=== PATIENT | female | born 1945 | race Caucasian/White ===

== ENCOUNTER 2017-01-03 09:00 | Emergency (ER) | payer MEDICAID ==
[~2017-01-03] VITALS: Ht 172.7 cm; Wt 85.7 kg
--- NOTE | ~2017-01-03 | CR229 ---
[facility] A Service of [facility] RADIOLOGY TEXT RESULTS PATIENT: JERONIMO WILSON LOCATION: [facility] : 49 UNIT #: [id number] AGE: [address]: Ward Hardwick SEX: F ORDER DR: [id number] [facility] [address] [place], [place] [address] [id number] E MR#: [id number] Acc #: [id number] NAME: JERONIMO WILSON. : 1945 SEX: F STUDY DATE/TIME: 01/03/2017 10:32 UNIT: [facility] ROOM: STUDY DESCRIPTION: CR Shoulder Min 2 View Lt Attending Physician: Ward Hardwick R.N. Ordering Physician: Ward Hardwick R.N. MEDICAL IMAGING REPORT This report is preliminary unless electronic signature is present EXAM Left shoulder series 01/03/2017 HISTORY Left upper extremity pain. Left rib pain under left breast. Fell on wet floor in kitchen. Left shoulder pain. TECHNIQUE AP, internal and external rotation views of the left shoulder are presented with transscapular view. FINDINGS No traumatic fracture or malalignment. Acromioclavicular and glenohumeral joint relationships are normal. Periarticular soft tissues are unremarkable. Jewelry artifact overlying neck. Status post median sternotomy and CABG. Visualized pulmonary parenchyma shows no acute abnormality. The visualized ribs are intact. Dictated by... Jon Jefferson M.D. THIS IS AN ELECTRONICALLY VERIFIED REPORT Jon Jefferson M.D. at 01/04/2017 2:07 PM CECILIO/zeny TD: 01/03/2017 16:50 JOB #: [id number] MEDICAL IMAGING REPORT [facility] A Service of [facility] RADIOLOGY TEXT RESULTS PATIENT: JERONIMO WILSON LOCATION: [facility] : 47 UNIT #: [id number] AGE: [address]: Ward Hardwick SEX: F ORDER DR: Page 1 of 1 COPY
--- NOTE | ~2017-01-03 | CR63 ---
[facility] A Service of [facility] & [facility] RADIOLOGY TEXT RESULTS PATIENT: JERONIMO WILSON LOCATION: [facility] : 49 UNIT #: [id number] AGE: [address]: Ward Hardwick SEX: F ORDER DR: [id number] [facility] [address] [place], [place] [address] [id number] E MR#: [id number] Acc #: [id number] NAME: JERONIMO WILSON. : 1945 SEX: F STUDY DATE/TIME: 01/03/2017 10:52 UNIT: [facility] ROOM: STUDY DESCRIPTION: CR Chest 2 View Attending Physician: Ward Hardwick R.N. Ordering Physician: Ward Hardwick R.N. Primary Care Physician: No Primary Care Physician MEDICAL IMAGING REPORT This report is preliminary unless electronic signature is present EXAM Chest 2 views 01/03/2017, 10:52 hours. HISTORY 71-year-old woman who fell on wet floor in her kitchen at home this morning. Left rib pain under left breast since fall. COMPARISON None. FINDINGS Upright PA and lateral views of the chest demonstrate median sternotomy and CABG change with heart size within normal limits. There is a mildly tortuous aorta. The lungs are well expanded and clear of acute density. There is no pleural effusion or pneumothorax. No rib fracture or acute compression fracture seen. IMPRESSION Median sternotomy change with CABG. Heart size within normal limits. The lungs are clear. There is no effusion, pneumothorax or fracture seen. Dictated by... Ambar Soto M.D. THIS IS AN ELECTRONICALLY VERIFIED REPORT Ambar Soto M.D. at 01/03/2017 5:02 PM SMM/vannessa TD: 01/03/2017 16:47 JOB #: [id number] MEDICAL IMAGING REPORT Page 1 of 1 COPY
--- NOTE | ~2017-01-03 | CR281 ---
[facility] A Service of [facility] & [facility] RADIOLOGY TEXT RESULTS PATIENT: JERONIMO WILSON LOCATION: [facility] : 49 UNIT #: [id number] AGE: [address]: Ward Hardwick SEX: F ORDER DR: [id number] [facility] [address] [place], [place] [address] [id number] E MR#: [id number] Acc #: [id number] NAME: JERONIMO WILSON. : 1945 SEX: F STUDY DATE/TIME: 01/03/2017 10:31 UNIT: [facility] ROOM: STUDY DESCRIPTION: CR Wrist Min 3 View Lt Attending Physician: Ward Hardwick R.N. Ordering Physician: Ward Hardwick R.N. Primary Care Physician: Primary Care Physician No MEDICAL IMAGING REPORT This report is preliminary unless electronic signature is present EXAM Left wrist series, 01/03/2017 HISTORY Left wrist pain. Fell on wet floor in kitchen at home this a.m. FINDINGS AP lateral and oblique radiographs of the left wrist are presented. No traumatic fracture or malalignment. Joint spaces are intact. Mild degenerative changes basal joint of the thumb. Visualized bones of hand appear intact. Jewelry artifact overlies the hand. No soft tissue defect, subcutaneous air or radiodense foreign body. Dictated by... Jon Jefferson M.D. THIS IS AN ELECTRONICALLY VERIFIED REPORT Jon Jefferson M.D. at 01/04/2017 2:07 PM Jose TD: 01/03/2017 16:53 JOB #: [id number] MEDICAL IMAGING REPORT Page 1 of 1 COPY
--- NOTE | ~2017-01-03 | CR93 ---
[facility] A Service of [facility] RADIOLOGY TEXT RESULTS PATIENT: JERONIMO WILSON LOCATION: [facility] : 49 UNIT #: [id number] AGE: [address]: Ward Hardwick SEX: F ORDER DR: [id number] [facility] [address] [place], [place] [address] [id number] E MR#: [id number] Acc #: [id number] NAME: JERONIMO WILSON. : 1945 SEX: F STUDY DATE/TIME: 01/03/2017 10:45 UNIT: [facility] ROOM: STUDY DESCRIPTION: CR Elbow Min 3 Views Lt Attending Physician: Ward Hardwick R.N. Ordering Physician: Ward Hardwick R.N. Primary Care Physician: No Primary Care Physician MEDICAL IMAGING REPORT This report is preliminary unless electronic signature is present EXAM Left elbow, 3 views, 01/03/2017, 1045 hours. COMPARISON 10/22/2015 CLINICAL HISTORY Patient fell on a wet kitchen floor at home today. Elbow pain. COMPARISON 10/22/2015 FINDINGS AP, lateral, and oblique views demonstrate stable degenerative spurring. No definite fracture is seen. There is a contour abnormality of the articular surface of the radial head related to a spur which is unchanged. IMPRESSION No definite joint effusion or fracture. Degenerative spurring is present. There is a stable contour abnormality at the articular surface of the radial head, unchanged from 10/22/2015 related to a spur. No fracture seen. Dictated by... Ambar Soto M.D. THIS IS AN ELECTRONICALLY VERIFIED REPORT Ambar Soto M.D. at 01/03/2017 5:02 PM TOMERM/anselmo TD: 01/03/2017 16:53 [facility] A Service [facility] RADIOLOGY TEXT RESULTS PATIENT: JERONIMO WILSON LOCATION: [facility] : 47 UNIT #: [id number] AGE: [address]: Ward Hardwick SEX: F ORDER DR: JOB #: [id number] MEDICAL IMAGING REPORT Page 1 of 1 COPY
--- NOTE | ~2017-01-03 | CR150 ---
[facility] A Service of [facility] RADIOLOGY TEXT RESULTS PATIENT: JERONIMO WILSON LOCATION: [facility] : 49 UNIT #: [id number] AGE: [address]: Ward Hardwick SEX: F ORDER DR: [id number] [facility] [address] [place], [place] [address] [id number] E MR#: [id number] Acc #: [id number] NAME: JERONIMO WILSON. : 1945 SEX: F STUDY DATE/TIME: 01/03/2017 10:27 UNIT: [facility] ROOM: STUDY DESCRIPTION: CR Hip Min 2 Views Lt Attending Physician: Ward Hardwick R.N. Ordering Physician: Ward Hardwick R.N. Primary Care Physician: Primary Care Physician No MEDICAL IMAGING REPORT This report is preliminary unless electronic signature is present EXAM Left hip series, 01/03/2017 HISTORY Trauma. Left rib pain under left breast. Left upper extremity pain. Fell on wet floor in kitchen at home. Left hip pain. FINDINGS AP radiograph of the pelvis presented with frog-leg view left hip. No traumatic fracture or malalignment. The bilateral hip joints show mild degenerative change. Bilateral proximal femurs appear intact. Surgical clips superimposed over the left inferior pelvis. Visualized bowel gas pattern normal. There are atherosclerotic arterial calcifications. Dictated by... Jon Jefferson M.D. THIS IS AN ELECTRONICALLY VERIFIED REPORT Jon Jefferson M.D. at 01/04/2017 2:07 PM CECILIO/paula TD: 01/03/2017 16:47 JOB #: [id number] MEDICAL IMAGING REPORT Page 1 of 1 COPY
[~2017-01-03 09:00] MED LIST: ASPIRINEC; HYDROCODON-ACE1 EAC7 PO; VICODIN 5/500 T1 TAB PO
== END 2017-01-03 12:11 | disposition home or self-care (01) ==
LOC: CED 09:00 → CFTX 09:00
DX: S70.02XA Contusion of left hip, initial encounter (principal); S20.212A Contusion of left front wall of thorax, initial encounter; S50.02XA Contusion of left elbow, initial encounter; S60.212A Contusion of left wrist, initial encounter; S40.012A Contusion of left shoulder, initial encounter; I50.9 Heart failure, unspecified; E11.9 Type 2 diabetes mellitus without complications; J44.9 Chronic obstructive pulmonary disease, unspecified; F17.210 Nicotine dependence, cigarettes, uncomplicated; Z88.0 Allergy status to penicillin; W01.0XXA Fall on same level from slipping, tripping and stumbling without subsequent striking against object, initial encounter; Y92.9 Unspecified place or not applicable
CPT/HCPCS: 71020; 73030; 73080; 73110; 73502; 99283

== ENCOUNTER 2017-01-15 20:47 | Inpatient (IN) | payer MEDICARE, MEDICAID ==
[~2017-01-15] VITALS: Ht 172.7 cm; Wt 97.4 kg
--- NOTE | ~2017-01-15 | CT57 ---
[facility] A Service of [facility] RADIOLOGY TEXT RESULTS PATIENT: JERONIMO WILSON LOCATION: [address] : [birth year] UNIT #: [id number] AGE: [address]: Clyde Franklin MD SEX: F ORDER DR: [id number] [facility] [address] [place] [address] [place], [place] [address] [id number] I MR#: [id number] Acc #: [id number] NAME: JERONIMO WILSON. : 1945 SEX: F STUDY DATE/TIME: 01/16/2017 16:20 UNIT: [facility] ROOM: [facility] STUDY DESCRIPTION: CT Chest Wo Cont Attending Physician: Clyde Franklin M.D. Ordering Physician: Mikaela Singletary M.D. Primary Care Physician: Primary Care Physician No MEDICAL IMAGING REPORT This report is preliminary unless electronic signature is present EXAM CT chest without contrast DATE: 01/16/2017 HISTORY 71-year-old female with shortness of breath for 6 days. Possible pneumonia on chest x-ray. Possible small right pleural effusion. Additional history of diabetes, COPD and cardiac disease. Previous CABG. COMPARISON AP portable chest 01/15/2017 at 14:08. No prior CT chest at this [address] for comparison. PROCEDURE 5 mm axial images through the chest without contrast. Sagittal and coronal reformatted images were obtained. This CT exam was performed with one or more of the following radiation dose reduction techniques: automatic exposure control, adjustment of mA and/or kV according to patient size, and iterative reconstruction. FINDINGS Diffuse tree-in-bud nodular densities are scattered throughout both lungs. There is band-like atelectatic changes medially within the right middle lobe, lingular segment left upper lobe, and medial - inferior right upper lobe. No pleural effusion. No pneumothorax. Mild cardiomegaly with presumed CABG changes. Borderline aneurysmal dilation of the mid descending thoracic aorta, 3.0 cm. Ectasia of the mid ascending thoracic aorta, 3.8 cm. The gallbladder is distended up to 4.6 cm transversely which could be due STS. [facility] A Service of [facility] RADIOLOGY TEXT RESULTS PATIENT: JERONIMO WILSON LOCATION: [address] : [birth year] UNIT #: [id number] AGE: [address]: Clyde Franklin MD SEX: F ORDER DR: to a fasting state but no pericholecystic inflammation is seen. Benign left adrenal adenoma (Hounsfield units -15) measures approximately 3.2 cm. A 1.4 cm cyst in the right upper renal pole (Hounsfield units -4.2). No acute or suspicious osseous abnormalities. IMPRESSION 1. Extensive tree-in-bud nodular densities throughout both lungs suggesting small airways infectious - inflammatory etiology. Band-like atelectatic changes are demonstrated medially within the right upper lobe, right middle lobe and lingular segment left upper lobe. 2. Mild cardiomegaly with CABG changes. 3. Borderline aneurysmal dilation of the descending thoracic aorta, 3.0 cm. Ascending aortic ectasia. 4. Left adrenal adenoma. 5. Gallbladder is mildly distended, which could be due to a fasting state, but no pericholecystic inflammation is seen. Correlate with physical examination findings. Gallbladder ultrasound may prove helpful for further evaluation if it would air in clinical management. 6. Right renal cyst. Dictated by... Elina Rodriguez M.D. THIS IS AN ELECTRONICALLY VERIFIED REPORT Elina Rodriguez M.D. at 01/18/2017 9:51 AM JACOB/trina TD: 01/17/2017 13:18 JOB #: [id number] MEDICAL IMAGING REPORT Page 1 of 1 COPY
--- NOTE | ~2017-01-15 | EKG ---
PATIENT: JERONIMO WILSON UNIT #: [id number] Ventricular Rate: 75 BPM Atrial Rate: 75 BPM P-R Interval: 166 ms QRS Duration: 98 ms Q-T Interval: 378 ms QTC Calculation(Bezet): 422 ms P Gilman: 73 degrees Calculated R Gilman: 67 degrees Calculated T Gilman: 75 degrees Diagnosis Line: Normal sinus rhythm Diagnosis Line: Normal ECG Diagnosis Line: When compared with ECG of 15-JAN-2017 14:44, Diagnosis Line: (unconfirmed) Diagnosis Line: Premature ventricular complexes are no longer Diagnosis Line: Present Diagnosis Line: Nonspecific T wave abnormality no longer evident Diagnosis Line: in Lateral leads Diagnosis Line: Confirmed by ALYSSIA MILLER MD ([id number]) on 01/16/2017 Diagnosis Line: 11:08:31 PM INTERPRETING MD: PAUL BEE
--- NOTE | ~2017-01-15 | DS ---
Unit #: [id number] #: [id number] Patient: JERONIMO WILSON [id number] [facility]. [place], [place] [address] [id number] I MR#: [id number] NAME: JERONIMO WILSON. ROOM: 339 Age: 71 Sex: F Admission Date: 01/15/2017 : 1945 Discharge Date: 01/21/2017 Attending Physician: Clyde Franklin M.D. Primary Care Physician: No Primary Care Physician DISCHARGE SUMMARY DIAGNOSIS ON ADMISSION Acute respiratory failure. DIAGNOSES ON DISCHARGE 1. Acute respiratory failure, resolved. 2. Acute exacerbation of COPD, improved. 3. Coronary artery disease, status post CABG. 4. Community acquired pneumonia. 5. Chronic systolic congestive heart failure. Ejection fraction 30%-35%. CONSULTANTS Dr. Singletary in pulmonary consultation. DIAGNOSTIC DATA CARDIOVASCULAR: The patient had echocardiogram done with ejection fraction of 30%-35%. There was mild to moderate mitral and tricuspid regurgitation present. LABORATORY: Creatinine 0.5, sodium 136, potassium 3.9. WBC was 14.1, hemoglobin was 15.0, platelet count was 287. Blood cultures did not reveal any growth. The patient's BNP was 217 on admission. Influenza A and B screen was negative. The patient's troponin was also negative. Urine for legionella was negative. HOSPITAL COURSE 71-year-old patient was admitted to [facility] with shortness of air. Details are as per admission H and P. Patient was admitted in the ICU and was treated with oxygen. 1. Acute exacerbation of COPD. The patient was treated with IV Solu-Medrol and mini-neb treatment and responded well. The patient is off oxygen now. 2. Acute systolic congestive heart failure. The patient's ejection fraction was 35%. She was treated with Bumex. The patient has responded well to the treatment and is feeling much better. Today the patient is comfortable and is not in any acute distress. Is anxious to go home. PHYSICAL EXAMINATION VITALS: Temperature 99 degrees, pulse is 94 per minute, respiratory rate is 14 per minute, blood pressure is 144/88. RESPIRATORY: Breath sounds equal bilaterally. There are no wheezes or Unit #: [id number] #: [id number] Patient: JERONIMO WILSON crackles. HEART: Regular rate and rhythm. S1 and S2. ABDOMEN: Soft. Nontender. Bowel sounds are present in all 4 quadrants. NEUROLOGIC: The patient is alert to person, place and time. Power is 5/5 bilaterally. Sensations are grossly intact. SKIN: Warm and dry. RECOMMENDATIONS ON DISCHARGE Condition is stable. Activity as tolerated. MEDICATIONS 1. Omnicef 300 mg p.o. b.i.d. for the next 4 days. 2. Mucinex 600 mg p.o. b.i.d. 3. Prednisone 20 mg p.o. daily for 3 days, then 10 mg p.o. daily for 3 days and then discontinue. 4. Bumex 1 mg p.o. daily. 5. Potassium 10 mEq p.o. daily. 6. Lisinopril 5 mg p.o. daily. 7. Enteric coated aspirin 81 mg p.o. daily. FOLLOWUP The patient is advised to follow up with primary care physician in 1 week and have a CBC and BMP done. The patient is advised to follow up with Dr. Singletary in 2 weeks. The patient is advised to call primary care physician or co to the emergency room if her condition changes. The patient states that she does not have a primary care physician. Therefore, we will request director social service to help the patient in establishing a primary care physician. In the meanwhile, will request for her to follow up with transitional clinic. The patient stated that she is moving around well and does not need any home health and she is ambulatory. The plan was discussed in detail with the patient and also with Dr. Chanelle King. Dictated by... Mary Richard TD: 01/26/2017 14:19 JOB #: [id number] CC: Mikaela Singletary M.D. [facility]. Unit #: [id number] #: [id number] Patient: JERONIMO WILSON DISCHARGE SUMMARY Page 1 of 1 X Clyde Franklin MD DISCHARGE SUMMARY
--- NOTE | ~2017-01-15 | HP ---
Unit #: [id number] #: [id number] Patient: JERONIMO WILSON [id number] [address] [place], [place] [address] [id number] I MR#: [id number] NAME: JERONIMO WILSON. ROOM: [facility] Age: 71 Sex: F Admission Date: 01/15/2017 : 1945 Attending Physician: John Salamanca M.D. HISTORY AND PHYSICAL CHIEF COMPLAINT Shortness of breath, cough. HISTORY OF PRESENT ILLNESS This is a 71-year-old female with a past medical history of coronary artery disease with previous CABG and multiple PTCAs, history of COPD, and tobacco abuse. She is currently noncompliant and not taking any medication for years. She came to the emergency room earlier today, and she was found to be in COPD exacerbation and given some Solu-Medrol 125 mg IV and KCl 60 mEq p.o. At that time, she declined. She left the hospital against medical advice. She went home, and she came back again with worsening symptoms and shortness of breath. She was found in the emergency room to have saturation of 85%. She was in respiratory distress and eventually placed on BiPAP and being admitted. She said the symptoms got progressively worse for the last five days. She is unable to breathe. She denies chest pain. She has had some nausea but no vomiting. She denies fever. She said she has some cough also, mainly nonproductive. PAST MEDICAL HISTORY 1. Coronary artery disease with previous CABG and multiple PTCAs. 2. COPD. PAST SURGICAL HISTORY 1. CABG. 2. Hysterectomy. 3. Hernia surgery. ALLERGIES Penicillin. HOME MEDICATIONS She is not taking any medication at home. SOCIAL HISTORY She smoked one pack daily for many years. She denies alcohol. She denies illicit drug use. REVIEW OF SYSTEMS Negative except History of Present Illness. PHYSICAL EXAMINATION GENERAL: A middle-aged female lying in the bed comfortably, currently not in any distress. She is alert, awake, and oriented x3, comfortable, currently on BiPAP. Unit #: [id number] #: [id number] Patient: JERONIMO WILSON CURRENT VITAL SIGNS: Temperature afebrile, heart rate 110, respiratory rate 32, blood pressure is 118/72, oxygen 85% initially in the ER. Currently, she is on BiPAP. HEENT: Pupils equally reactive to light and accommodation. Head is normocephalic and atraumatic. NECK: Supple. No jugular venous distention. HEART: S1 and S2, regular rate and rhythm. Tachycardia. LUNGS: Poor air entry bilaterally. ABDOMEN: Soft, nontender, obese. EXTREMITIES: Inspection normal. No cyanosis. No clubbing. No edema. NEUROLOGIC: No focal neurologic deficit. She is moving all extremities. DIAGNOSTIC STUDIES LABORATORY: White count 15, hemoglobin 14, hematocrit 43, platelets 263,000. BNP 217. Sodium 140, potassium 3, chloride 101, CO2 of 30, glucose 98, BUN 10, creatinine 0.7. LFTs within normal limits. Troponin less than 0.05. IMAGING: Chest x-ray shows a small right pleural effusion. ASSESSMENT AND PLAN 1. Acute hypoxic respiratory failure. Currently, will continue BiPAP. 2. Acute exacerbation of chronic obstructive pulmonary disease. IV Solu-Medrol, IV Rocephin, Zithromax, Mucinex, dual nebulizer. 3. Hypokalemia. Replaced already earlier today. Was given KCl 60 mEq. Repeat in the morning with magnesium level. 4. Small right pleural effusion on x-ray. 5. Coronary artery disease with previous coronary artery bypass grafting. 6. Increased BNP. Will get also a 2D echocardiogram. 7. Obesity. 8. Deep venous thrombosis prophylaxis and gastrointestinal prophylaxis. Will place the patient on Protonix and Lovenox. 1. Dictated by Mary Nagel TD: 01/16/2017 16:37 JOB #: [id number] HISTORY AND PHYSICAL Page 1 of 1 X X HISTORY AND PHYSICAL
--- NOTE | ~2017-01-15 | CO ---
Unit #: [id number] #: [id number] Patient: JERONIMO WILSON [id number] [address] [address] [id number] I MR#: [id number] NAME: JERONIMO WILSON. ROOM: [facility] Age: 71 Sex: F Admission Date: 01/15/2017 : 1945 Attending Physician: John Salamanca M.D. Primary Care Physician: Primary Care Physician No CONSULTATION REPORT REASON FOR CONSULTATION Critical care management, acute respiratory failure. CHIEF COMPLAINT Shortness of breath. HISTORY OF PRESENT ILLNESS Esjnp-tpza-yrdh-old female, past medical history of congestive heart failure, chronic obstructive pulmonary disease, diabetes, hypertension, coronary artery disease, status post coronary artery bypass grafting, presents to the emergency room with the complaint of cough, shortness of breath, and increasing sputum production for the last lgk-ut-kteih days, symptoms have been getting worse. I am seeing the patient at the bedside, currently, on BiPAP, very anxious, she denies any chest pain, nausea, vomiting, diarrhea. REVIEW OF SYSTEMS Positive for pallor. No edema, no cyanosis, and no jaundice. The rest is per history of present illness. The rest of a twelve point review of systems has been reviewed and is negative. PAST MEDICAL HISTORY As described above, include chronic obstructive pulmonary disease, coronary artery disease, status post coronary artery bypass grafting, diabetes mellitus, hypertension, and chronic hypoxic respiratory failure. MEDICATIONS As per MAR, has been reviewed. ALLERGIES Penicillin. PHYSICAL EXAMINATION VITAL SIGNS: Currently on BiPAP, temperature 98, pulse 78, respirations 20, and blood pressure 122/74. NEUROLOGIC: Awake, alert, and oriented. No neurologic deficit. HEENT: PERRLA. NECK: Supple. No jugular venous distention. CHEST: Bilateral air entry. Bilateral mild rhonchi. GI: Nontender. Soft. Bowel sounds are positive. EXTREMITIES: No edema. DIAGNOSTIC STUDIES Unit #: [id number] #: [id number] Patient: JERONIMO WILSON LABORATORY: Blood gas, pH of 7.27, pCO2 is 53, pO2 is 141. Her creatinine is 1.0. Lactic acid is 1.7. BNP is 217. White count 15, hemoglobin 14, hematocrit 43, platelet count is 263. ASSESSMENT 1. Acute hypoxic hypercapnic respiratory failure. 2. Metabolic respiratory acidosis. 3. Acute exacerbation of chronic obstructive pulmonary disease. 4. Acute bronchitis, rule out pneumonia. PLAN Continue the patient on IV antibiotics including, Zithromax, Rocephin, continue IV steroids, bronchodilators, sputum cultures, and sensitivity 3% and Mucomyst nebulization, noncontrast CT of the chest, troponin, 2D echo, control sugars. The patient will be closely monitored, will continue to monitor in the intensive care unit. I would like to thank you for your kind consideration to involve me in taking care of this patient. Dictated by... Mary Pina TD: 01/16/2017 14:11 JOB #: [id number] CONSULTATION REPORT Page 1 of 1 X Mikaela Singletary MD CONSULTATION REPORT
--- NOTE | ~2017-01-15 | EKG ---
PATIENT: JERONIMO WILSON UNIT #: [id number] Ventricular Rate: 92 BPM Atrial Rate: 92 BPM P-R Interval: 152 ms QRS Duration: 88 ms Q-T Interval: 344 ms QTC Calculation(Bezet): 425 ms P Ghent: 68 degrees Calculated R Ghent: 66 degrees Calculated T Ghent: 85 degrees Diagnosis Line: Normal sinus rhythm Diagnosis Line: Nonspecific ST abnormality Diagnosis Line: Abnormal ECG Diagnosis Line: When compared with ECG of 16-JAN-2017 12:07, Diagnosis Line: No significant change was found Diagnosis Line: Confirmed by LILIAN DICKENS MD ([id number]) on Diagnosis Line: 01/21/2017 11:35:27 AM INTERPRETING MD: CHRISSIE BEE
[2017-01-15 23:01] LABS: ARTERIAL BLD GAS O2 SATURATION 96.8 % (90.0-100.0); ARTERIAL BLOOD GAS CARBOXY HB 1.2 %sat (0.0-9.0); ARTERIAL BLOOD GAS HCO3 26.8 mmol/L; ARTERIAL BLOOD GAS MET HB 0.6 %sat (0.0-2.0); ARTERIAL BLOOD GAS pH 7.309 (7.350-7.450)
[2017-01-15 23:02] LABS: ARTERIAL BLOOD GAS ALLEN TEST NORMAL; ARTERIAL BLOOD GAS ART SITE RIGHT RADIAL; ARTERIAL BLOOD GAS PCO2 53.3 mmHg (35.0-45.0); ARTERIAL DRAW? YES
[2017-01-16 03:25] LABS: ARTERIAL BLD GAS O2 SATURATION 98.1 % (90.0-100.0); ARTERIAL BLOOD GAS ALLEN TEST NORMAL; ARTERIAL BLOOD GAS ART SITE RIGHT RADIAL; ARTERIAL BLOOD GAS CARBOXY HB 0.7 %sat (0.0-9.0); ARTERIAL BLOOD GAS DELIVERY BIPAP 16/6; ARTERIAL BLOOD GAS HCO3 24.6 mmol/L; ARTERIAL BLOOD GAS MET HB 0.6 %sat (0.0-2.0); ARTERIAL BLOOD GAS pH 7.275 (7.350-7.450); ARTERIAL DRAW? YES
[2017-01-16 07:23] LABS: CALCIUM SERUM 8.9 mg/dL (8.4-10.2); GLOM FILT RATE Estimated 57.5 mL/min (>60); MAGNESIUM 2.1 mg/dL (1.6-3.0); POTASSIUM 4.1 mmol/L (3.5-5.1)
[2017-01-16 12:58] LABS: ARTERIAL BLOOD GAS pH 7.337 (7.350-7.450)
[2017-01-16 12:59] LABS: ARTERIAL BLD GAS O2 SATURATION 99.4 % (90.0-100.0); ARTERIAL BLOOD GAS ALLEN TEST N; ARTERIAL BLOOD GAS ART SITE LEFT RADIAL; ARTERIAL BLOOD GAS CARBOXY HB 0.4 %sat (0.0-9.0); ARTERIAL BLOOD GAS DELIVERY BIPAP; ARTERIAL BLOOD GAS HCO3 28.1 mmol/L; ARTERIAL BLOOD GAS MET HB 0.8 %sat (0.0-2.0); ARTERIAL BLOOD GAS PCO2 52.4 mmHg (35.0-45.0); ARTERIAL BLOOD GAS VENT MODE 18/6; ARTERIAL DRAW? YES
[2017-01-16 13:41] LABS: INFLUENZA A NEG (NEG); INFLUENZA B NEG (NEG)
[2017-01-17 04:55] LABS: HEMATOCRIT 40.6 % (35.0-45.0); HEMOGLOBIN 13.3 gm/dL (12.0-16.0); LYMPHOCYTE# 0.9 X10e3 (1.0-3.5); LYMPHOCYTE% 4.8 % (17.0-45.0); MEAN CELL VOLUME 86.4 FL (83-96); MEAN CORPUSCULAR HEMOGLOBIN 28.3 PG (28-34); MEAN CORPUSCULAR HGB CONC 32.7 g/dL (30-36); MEAN PLATELET VOLUME 8.5 FL (6.5-11.5); MONOCYTE# 0.4 X10e3 (0-1.0); MONOCYTE% 2.3 % (3.0-12.0); NEUTROPHIL# 17.6 X10e3 (1.5-7.1); NEUTROPHIL% 92.9 % (40-75); PLATELET COUNT 316 X10e3 (140-420)
[2017-01-17 05:00] LABS: DIFF IND NO
[2017-01-17 05:03] LABS: ALBUMIN SERUM 3.5 g/dL (3.5-5.0); BILIRUBIN,TOTAL 0.4 mg/dL (0.2-2.0); CALCIUM SERUM 8.9 mg/dL (8.4-10.2); GLOM FILT RATE Estimated 57.5 mL/min (>60); POTASSIUM 4.6 mmol/L (3.5-5.1); PROTEIN TOTAL SERUM 7.8 g/dL (6.0-8.3)
[2017-01-17 12:04] LABS: LEGIONELLA AG URINE NEG (NEG)
[2017-01-18 05:26] LABS: HEMATOCRIT 41.5 % (35.0-45.0); HEMOGLOBIN 13.9 gm/dL (12.0-16.0); MEAN CORPUSCULAR HEMOGLOBIN 28.9 PG (28-34); MEAN CORPUSCULAR HGB CONC 33.6 g/dL (30-36); MEAN PLATELET VOLUME 8.6 FL (6.5-11.5); RED BLOOD COUNT 4.82 X10e (3.90-5.30); RED CELL DISTRIBUTION WIDTH 13.7 % (11.0-15.5); WHITE BLOOD COUNT 14.9 X10e3 (4.0-10.5)
[2017-01-18 05:50] LABS: CALCIUM SERUM 9.1 mg/dL (8.4-10.2); CREATININE SERUM 0.6 mg/dL (0.6-1.4)
[2017-01-19 08:05] LABS: CREATININE SERUM 0.8 mg/dL (0.6-1.4); GLOM FILT RATE Estimated 75.3 mL/min (>60); POTASSIUM 5.3 mmol/L (3.5-5.1)
[2017-01-19 08:35] LABS: BASOPHIL% 0.3 % (0-2.5); EOSINOPHIL% 0.1 % (0.0-7.0); HEMATOCRIT 45.1 % (35.0-45.0); LYMPHOCYTE# 1.4 X10e3 (1.0-3.5); LYMPHOCYTE% 9.9 % (17.0-45.0); MEAN CELL VOLUME 86.3 FL (83-96); MEAN CORPUSCULAR HEMOGLOBIN 28.6 PG (28-34); MEAN CORPUSCULAR HGB CONC 33.2 g/dL (30-36); MEAN PLATELET VOLUME 8.7 FL (6.5-11.5); MONOCYTE% 6.9 % (3.0-12.0); NEUTROPHIL# 11.6 X10e3 (1.5-7.1); NEUTROPHIL% 82.8 % (40-75); PLATELET COUNT 287 X10e3 (140-420); RED BLOOD COUNT 5.23 X10e (3.90-5.30); RED CELL DISTRIBUTION WIDTH 13.7 % (11.0-15.5); WHITE BLOOD COUNT 14.1 X10e3 (4.0-10.5)
[2017-01-19 08:36] LABS: DIFF IND YES
[2017-01-19 08:58] LABS: PLATELET ESTIMATE NORMAL (NORMAL)
[2017-01-20 12:05] LABS: BUN/CREATININE RATIO 41.66; CREATININE SERUM 0.6 mg/dL (0.6-1.4); POTASSIUM 3.7 mmol/L (3.5-5.1)
[2017-01-21 06:43] LABS: CALCIUM SERUM 8.7 mg/dL (8.4-10.2); CREATININE SERUM 0.5 mg/dL (0.6-1.4); GLOM FILT RATE Estimated 98.8 mL/min (>60); POTASSIUM 3.9 mmol/L (3.5-5.1)
[2017-01-21] MEDS ORDERED: OMNICEF PO (13:53)
[2017-01-21] MEDS ORDERED: ACETAMINOPHEN650 M1 (13:53)
[2017-01-21] MEDS ORDERED: BUMEX1 MG PO (13:53)
[2017-01-21] MEDS ORDERED: GUAIFENESIN600 MG PO (13:56)
[2017-01-21] MEDS ORDERED: ASPIRINEC PO (13:57)
[2017-01-21] MEDS ORDERED: ZESTRIL5 MG PO (13:57)
[2017-01-21] MEDS ORDERED: K-DUR10 MEQ PO (14:04)
[2017-01-21] MEDS ORDERED: DELTASONE20 MG PO (14:04)
== END 2017-01-21 15:59 | disposition home or self-care (01) | DRG 189 ==
LOC: CED 20:47 → CEDOF 22:00 → C3A PCU 22:00 → CED 22:01 → CEDOF 22:01 → CICCU2 01-16 10:14 → C3A PCU 01-18 15:17
PROVIDERS: Emergency Medicine; Internal Medicine; Internal Medicine Pulmonary Disease
PROC: B24BZZZ Ultrasonography of Heart with Aorta (ICD-10-PCS; principal; 2017-01-16)
DX: J96.01 Acute respiratory failure with hypoxia (principal); J18.9 Pneumonia, unspecified organism; I11.0 Hypertensive heart disease with heart failure; E87.2 Acidosis; J44.0 Chronic obstructive pulmonary disease with (acute) lower respiratory infection; I50.9 Heart failure, unspecified; J44.1 Chronic obstructive pulmonary disease with (acute) exacerbation; J96.02 Acute respiratory failure with hypercapnia; J20.9 Acute bronchitis, unspecified; E87.6 Hypokalemia; I25.10 Atherosclerotic heart disease of native coronary artery without angina pectoris; Z95.1 Presence of aortocoronary bypass graft; E66.9 Obesity, unspecified; Z68.33 Body mass index [BMI] 33.0-33.9, adult; Z91.14 Patient's other noncompliance with medication regimen; Z90.710 Acquired absence of both cervix and uterus; Z88.0 Allergy status to penicillin; E11.9 Type 2 diabetes mellitus without complications; R52 Pain, unspecified; Z91.81 History of falling; G47.33 Obstructive sleep apnea (adult) (pediatric)
CPT/HCPCS: 36415; 36600; 71010; 71250; 80048; 80053; 80076; 82308; 82553; 82803; 82947; 83605; 83735; 83880; 84484; 85025; 85027; 87040; 87070; 87205; 87449; 87804; 87899; 93005; 93306; 94640; 94660; 94760; 94761; 96374; 96375; 97110; 97116; 97163; 97530; 99285; 99291; G8978-GP; G8979-GP; G8980-GP; J0456; J0696; J1200; J1650; J1815; J1885; J2270; J2405; J2765; J2920; J2930